=== PATIENT | female | born 1950 | race Caucasian/White ===

== ENCOUNTER 2017-11-04 07:04 | Emergency (ER) | payer MEDICARE ==
[~2017-11-04] VITALS: Ht 158.8 cm; Wt 67.7 kg
[2017-11-04 07:09] VITALS: BP 135/72; PULSE 94; RESP 18; TEMP 100.4; O2SAT 95
[2017-11-04] MEDS ORDERED: LEVO25TA4 PO (07:20)
[2017-11-04] MEDS ORDERED: RALO1TAB PO (07:20)
[2017-11-04] MEDS ORDERED: LOVA40TA PO (07:20)
--- NOTE | 2017-11-04 07:28 | PD ---
HPI Chief Complaint: Fever Time Seen by Provider: 07:16 Travel History International Travel<30 days: No Contact w/Intl Traveler<30days: No Traveled to known affect area: No History of Present Illness HPI This [id number] female is complaining of fever and cough. She went to an urgent care center in [place] on Wednesday because of fever and myalgias. She had a flu test done which was negative but it was thought she may have the flu and she was put on Tamiflu at that time. She is continued to have fever. She has been coughing up some thick phlegm. She has not been short of breath. She has no history of asthma she does not smoke.Appetite has been diminished. There has not been any dysuria. She is not having pain PFSH Past Medical History High Cholesterol: Yes Diminished Hearing: No Thyroid Disease: Yes Tetanus Vaccination: Unknown ?: Not Past Surgical History Section: Yes Hysterectomy: Yes Tonsillectomy: Yes Other Surgery: Yes (BACK SX) Social History Alcohol Use: Yes (SOC) Tobacco Use: No Substance Use: No Allergies-Medications (Allergen,Severity, Reaction): Coded Allergies: aspirin (Unverified Allergy, Unknown, pt states not allergic, 11/04/17) oxycodone (Unverified Allergy, Unknown, feels loopy, 11/04/17) Reported Meds & Prescriptions Reported Meds & Active Scripts Active Reported Raloxifene (Raloxifene HCl) 60 Mg Tab 60 Mg PO DAILY Levothyroxine (Levothyroxine Sodium) 25 Mcg Tab Unknown Dose PO DAILY Lovastatin 40 Mg Tab 40 Mg PO DAILY Review of Systems General / Constitutional: Positive: Fever, Chills Eyes: No: Diploplia, Blurred Vision HENT: No: Headaches Cardiovascular: No: Chest Pain or Discomfort Respiratory: Positive: Cough, No: Shortness of Breath Gastrointestinal: No: Vomiting, Diarrhea Genitourinary: No: Urgency, Frequency Musculoskeletal: Positive: Myalgias Skin: No Rash Neurologic: Positive: Weakness Physical Exam Narrative GENERAL: Well-developed female SKIN: Focused skin assessment warm/dry. HEAD: Atraumatic. Normocephalic. EYES: Pupils equal and round. No scleral icterus. No injection or drainage. ENT: No nasal bleeding or discharge. Mucous membranes pink and moist. NECK: Trachea midline. No JVD. CARDIOVASCULAR: Regular rate and rhythm. No murmur appreciated. RESPIRATORY: No accessory muscle use. There are occasional rhonchi. Breath sounds equal bilaterally. GASTROINTESTINAL: Abdomen soft, non-tender, nondistended. Hepatic and splenic margins not palpable. MUSCULOSKELETAL: No obvious deformities. No clubbing. No cyanosis. No edema. NEUROLOGICAL: Awake and alert. No obvious cranial nerve deficits. Motor grossly within normal limits. Normal speech. PSYCHIATRIC: Appropriate mood and affect; insight and judgment normal. Data Data Last Documented VS Vital Signs Date Time Temp Pulse Resp B/P (MAP) Pulse Ox O2 Delivery O2 Flow Rate FiO2 11/04/17 07:14 16 95 Room Air 11/04/17 07:09 100.4 94 135/72 (93) Orders Orders Chest, Pa & Lat (11/04/17 07:24) MDM Medical Decision Making Medical Screen Exam Complete: Yes Emergency Medical Condition: Yes Medical Record Reviewed: Yes Differential Diagnosis Differential includes pneumonia, bronchitis, viral syndrome Narrative Course X-ray is negative for pneumonia. Impression is bronchitis. Patient has been sick for almost a week so I am going to give an empiric trial of antibiotics Diagnosis Primary Impression: Acute bronchitis Scripts Amoxicillin-Clavulanate (Augmentin) 875-125 Mg Tab 1 TAB PO BID for Infection for 7 Days, #14 TAB 0 Refills Prov: Jhon Cabrera MD 11/04/17 Disposition: 01 DISCHARGE HOME Condition: Stable Jhon Cabrera MD Nov 04, 2017 07:28
--- NOTE | 2017-11-04 07:49 | RADRPT ---
EXAM DATE/TIME: 11/04/2017 07:35 [facility] COMPARISON: No previous studies available for comparison. INDICATIONS : Cough & congestion. MEDICAL HISTORY : Hypercholesterolemia. Thyroid disease. SURGICAL HISTORY : Tonsillectomy. Hysterectomy. section. ENCOUNTER: Initial ACUITY: 1 week PAIN SCORE: 0/10 LOCATION: chest FINDINGS: PA and lateral views of the chest demonstrate the lungs to be symmetrically aerated without evidence of mass, infiltrate or effusion. The cardiomediastinal contours are unremarkable. Osseous structure s are intact. CONCLUSION: Normal examination. Jolynn Silva MD on November 04, 2017 at 7:47 Board Certified Radiologist. This report was verified electronically.
[2017-11-04] MEDS ORDERED: AUGM875T3 PO (07:59)
== END 2017-11-04 08:16 | disposition home or self-care (01) ==
LOC: PHED 07:04
DX: J20.9 Acute bronchitis, unspecified (principal); E78.00 Pure hypercholesterolemia, unspecified; E07.9 Disorder of thyroid, unspecified
CPT/HCPCS: 71046; 99283